=== PATIENT | female | born 1985 | race Caucasian/White ===

== ENCOUNTER 2019-11-09 06:40 | Outpatient (CLI) | payer OTHER ==
[2019-11-09 10:05] LABS: BHCG - Serum Negative (NEGATIVE); Pregs Control Background? CLEAR/WHITE (CLR/WHITE); Pregs Control Bar Appear? YES (CONTROL BAR)
[2019-11-09 18:44] LABS: SARS-CoV-2 MS2 Positive; SARS-CoV-2 N Gene Negative; SARS-CoV-2 S Gene Negative; SARS-CoV-2 orf1ab Negative
== END 2019-11-09 06:41 | disposition home or self-care (01) ==
LOC: LABBT 06:40
PROVIDERS: ATTEND Orthopaedic Surgery
DX: Z01.812 Encounter for preprocedural laboratory examination (principal); Z11.59 Encounter for screening for other viral diseases; S83.512A Sprain of anterior cruciate ligament of left knee, initial encounter; S83.412A Sprain of medial collateral ligament of left knee, initial encounter
CPT/HCPCS: 84703; 87635; U0003

== ENCOUNTER 2019-11-12 07:22 | Observation (INO) | payer OTHER ==
[2019-11-12] MEDS ORDERED: Clindamycin/D5W 600 mg/50 ml Premix Bag ONE (07:49)
[2019-11-12] MEDS ORDERED: Fentanyl 100 MCG/2 ML VIAL ONE ×4 (08:06→14:22)
[2019-11-12] MEDS ORDERED: Dexamethasone 4 mg/ml Vial ONE (08:06)
[2019-11-12] MEDS ORDERED: Midazolam HCl 2 mg/2 ml Vial ONE (08:06)
[2019-11-12] MEDS ORDERED: Ropivacaine 0.5% HCl/PF (150 MG/30 ML VIAL) ONE (10:08)
[2019-11-12] MEDS ORDERED: Lidocaine 1% PF 5 ML VIAL ONE (10:08)
[2019-11-12] MEDS ORDERED: Ketorolac Tromethamine 30 MG/ML VIAL ONE (10:08)
[2019-11-12] MEDS ORDERED: Ondansetron PF 4 MG/2 ML Vial ONE ×2 (10:08→18:01)
[2019-11-12] MEDS ORDERED: Dexamethasone 20 MG/5 ML VIAL ONE (10:08)
[2019-11-12] MEDS ORDERED: PROPOFOL 200 MG/20 ML VIAL ONE (10:08)
[2019-11-12] MEDS ORDERED: HYDROmorphone 0.5 MG/0.5 ML SYRINGE ONE ×3 (14:48→15:38)
[2019-11-12] MEDS ORDERED: HYDROcodone/Acetaminophen 5/325 mg Tablet ONE (16:00)
[2019-11-12] MEDS ORDERED: Morphine 2 MG/ML SYRINGE SLOW IVP PRN (20:08)
[2019-11-12] MEDS ORDERED: Naloxone HCl 0.4 mg/ml Vial IV PRN (20:09)
[2019-11-12] MEDS ORDERED: Ondansetron PF 4 MG/2 ML Vial SLOW IVP PRN (20:10)
[2019-11-12] MEDS ORDERED: Zolpidem Tartrate 5 MG TAB PO PRN (20:10)
[2019-11-12] MEDS: HYDROcodone/Acetaminophen 10/325 mg Tablet PO PRN (20:59)
[2019-11-12] MEDS: Clindamycin/D5W 300 MG in Premix Bag 1 BAG IVPB SCH (21:05)
[2019-11-12 21:53] VITALS: BMI 26.1
[2019-11-13] MEDS: HYDROcodone/Acetaminophen 10/325 mg Tablet PO PRN ×2 (02:51→07:59)
[2019-11-13] MEDS: Clindamycin/D5W 300 MG in Premix Bag 1 BAG IVPB SCH (04:34)
[2019-11-13 07:14] VITALS: BP 112/75; TEMP 97.8
--- NOTE | 2019-11-13 12:49 | OP ---
DATE OF PROCEDURE: 11/12/2019 BAND MASTER: BRENT Guerrero. 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 PROCEDURES PERFORMED: 1. Left knee exam under anesthesia. 2. Open reconstruction of the medial collateral ligament as well as the posterior oblique ligament using allograft posterior tibial tendon. 3. Revision anterior cruciate ligament reconstruction using allograft Achilles tendon. ESTIMATED BLOOD LOSS: 250 to 300 mL. COMPLICATIONS: None. ANESTHESIA: She had general anesthetic as well as preoperative block. IMPLANTS: For the open reconstruction of the medial collateral ligament and then the posterior oblique ligament, we used 7 x 23 BioComposite tenodesis screws x4. We also used one 3.5 titanium anchor. For the ACL reconstruction, we used a 7 x 25 metal interference screw, and we used a 9 x 30 BioComposite interference screw as well as a bicortical screw with a soft tissue washer. CONDITION: She did go to recovery room in stable condition. INDICATIONS FOR SURGERY: This is a 34-year-old female, who 10 years ago had a severe injury on a horse, and at that time, had an allograft ACL done. No attention was ever surgically done to her medial and posteromedial knee and thus she has had chronic instability since that time. She also was known to have a chronic grade 2 PCL injury. At this time, the patient is presenting for reconstruction. DESCRIPTION OF PROCEDURE: After all appropriate consent forms were explained and signed, she was taken to the operating room and at this time was given general anesthetic. Once the level of anesthesia was appropriate, exam under anesthesia confirmed a positive Dayanna's and 2+ posterior drawer with a good endpoint and medial instability whereas in 5 degrees of hyperextension, the patient demonstrating medial gapping and in flexion was severely unstable with enough space I stick my thumb in between her femur and the tibia. At this time, tourniquet was placed on her left thigh. Leg was placed in arthroscopic leg dunn. The limb was then prepped and draped in a standard surgical fashion. The limb was then exsanguinated. At this time, a long medial incision was made centered over the VMO going down distally to approximately 7 cm below the joint line incorporating her previous incision for her ACL reconstruction. At this time, skin flaps were raised and venous bleeding was coagulated. We then turned our attention first to removing sutures and finding our previous tibial tunnel. Once this was done, we were able to isolate the hamstring tendons. We went just distal to the hamstrings, going through sartorial fascia and lifting the hamstrings approximately to gain access to the insertion of the superficial medial collateral. We then placed a guidewire and reamed with a 7 mm reamer to a depth of 25. This was our first tunnel. We then turned our attention to looking for the semimembranosus muscle and tendon attachment to the tibia. At this time, we then found our spot for our tibial attachment of our posterior oblique ligament. Again, guidewire was placed hanging at Gerdy tubercle and we then again reamed with a 7 mm reamer to a depth of 25. We then turned our attention to finding our femoral landmarks for our tunnels on the femur. The first thing we did was find the adductor jb tendon dissecting just posteromedial to the VMO. We were able to easily find this tendon and place a tonsil clamp underneath this using a retractor as well. The bony insertion and the adductor tubercle were then found. Using adductor tubercle, we then used a ruler to find our area for our superficial medial collateral tunnel which was just proximal and posterior to the medial epicondyle. This was marked and was placed. We then used our guide from the Arthrex collateral ligament set to place a 2nd pin more proximal and slightly posterior 13 mm away for our femoral tunnel for our posterior oblique ligament. This was corroborated by measuring from the gastroc tubercle as well as the adductor tubercle. The second wire was then placed. Once both wires were placed, we then used a 7 mm reamer to ream both to a depth of 25. At this time , we took our already prepared grafts, which were an allograft and posterior tibial tendon, which had been split in two, a graft 16 mm long and one that was 12 mm long. The one side of the graft had been sewn for a total of 25 mm and this end was placed into our femoral tunnel and fixated with a 7 x 23 Bio-Tenodesis Composite screw x2. We then were able to tunnel underneath the sartorial fascia, pulling each of these two grafts down towards our tibial tunnel insertion. They were not fixated at this time. At this time, we then turned our attention to our ACL reconstruction. Inferolateral portal was established. The scope was placed into the knee joint. A needle localization technique was then used to make a medial portal through our incision, and at this time, a diagnostic arthroscopy commenced. The PCL had pulled off its normal anatomic insertion site on the femur and gone posteriorly and superiorly and a large bundle of collagen which was stable was noted. The remnant of the ACL graft was noted and this was easily removed with the shaver. At this time, the medial compartment was evaluated. Her femur, tibia, and medial meniscus were in good condition. Lateral compartment showed the same. There were a couple of areas on the lateral tibial plateau with some chondral fissuring. No loose bodies were noted in either gutter and the patellofemoral joint was found to be in good condition. At this time, revision notchplasty was performed using the SERFAS energy as well as the shaver to gain access to our area for our tunnel. An [id number] guide was then placed through the medial portal, the knee was flexed up, and a pin was placed up and out the anterolateral thigh. A 10 mm reamer was then used to ream a tunnel to a depth of 30. All loose bony and cartilaginous debris were removed from the knee joint at this time. The tibial guide was then placed into the knee at 55 degrees, placing a pin up into the knee joint. We then used a 10 mm reamer to ream our tibial tunnel, and in doing this, the majority of the soft tissue graft was removed. The tunnel edges were cleaned and chamfered with a red rasp and willie. At this time, we flexed the knee up one more time without any fluid in the knee, placing a passing pin up and out the anterolateral thigh and using this to pull our passing suture into the knee joint. This was then pulled down to tibial tunnel and used to pull our Achilles allograft into place. Once the bone block had been docked, a 7 x 25 metal interference screw was used for femoral fixation. We then placed the knee in 0 degrees of extension with no significant drawer being applied as the knee was held in neutral position and I did not want to lock her posteriorly and our graft was fixated with a 9 x 30 BioComposite screw up the tibial tunnel, backed up by a bicortical screw with a soft tissue washer. Once this was done, we went about fixating our tibial medial reconstruction grafts. The first one to be fixed was superficial medial collateral ligament, and this was fixated in approximately 20 degrees of flexion with the tibia in neutral rotation and varus being applied so there was no gapping. Again, this graft was docked into this tunnel and fixated with a 7 x 23 BioComposite Bio-Tenodesis screw. We then fixated our posterior oblique ligament and full hyperextension of her knee in the same manner. Once this was done, the knee was taken through range of motion from hyperextension to 90 or 100 degrees flexion. We had full hyperextension. We had a good endpoint on our Dayanna. She continued to have a 2+ posterior drawer, and in full extension, we had no gapping medially, and in 30 degrees of flexion, we had slight opening as I would deem would be normal in a normal knee. At this time, the tourniquet had hit 2 hours; therefore, our large wound was packed with sponges and wrapped with an Aleks wrap. Tourniquet was let down. We then allowed 10 to 15 minutes for the leg to revascularize. We then unwrapped the leg and I used a Bovie to coagulate any brisk bleeding. We then thoroughly irrigated our large incision. At this time, we then started to sequentially close our knee, but prior to this we had to perform our secondary fixation for our superficial medial collateral ligament at a spot 1.2 cm distal to the joint. A small gap was made in the sartorial fascia and the ligament was found, and just posterior to this, we placed a 3.5 titanium anchor and incorporated the sutures into the tendon to fixate the tendon in this spot. At this time, we then closed all our rents in the sartorial fascia and closed our separation between the VMO which we used to find our adductor tendon. We then thoroughly irrigated some more. We then placed some tacking sutures to tack down our skin flap in the deep area of the flap. We then used multiple layers including 0 Vicryl, 2-0 Vicryl, and finally surgical yasmin to close the skin. One portal laterally was closed with a nylon stitch. At this time, we then placed a large bulky sterile dressing and an Aleks wrap over top of this. The patient then had a long hinged knee brace placed onto the knee, locked in full extension, and set a 70 degrees of flexion to allow adequate range of motion. At this time, the patient was awakened and she was taken to recovery room in stable condition. All counts were correct at the end of the case and she did receive preoperative IV antibiotics. Job ID: [id number] [id number]
== END 2019-11-13 11:14 | disposition home or self-care (01) ==
LOC: SDC 07:22 → SURG A 18:27
PROVIDERS: ADMIT Orthopaedic Surgery; ATTEND Orthopaedic Surgery
PROC: 0MQP0ZZ Repair Left Knee Bursa and Ligament, Open Approach (ICD-10-PCS; principal; 2019-11-13)
PROC: 0MR Bursae and Ligaments, Replacement (ICD-10-PCS; 2019-11-13)
DX: T84.89XA Other specified complication of internal orthopedic prosthetic devices, implants and grafts, initial encounter (principal); M23.52 Chronic instability of knee, left knee; Z88.0 Allergy status to penicillin
CPT/HCPCS: 96365; 96366; 96375; C1713; C1776; G0378; J1100; J1170; J1885; J2001; J2250; J2405; J2704; J2795; J3010; J3370; J3490